=== PATIENT | male | born 1980 | race Caucasian/White ===

== ENCOUNTER 2023-01-30 10:55 | Emergency (ER) | payer MEDICARE, OTHER ==
[~2023-01-30] VITALS: Ht 167.6 cm; Wt 68.5 kg
[2023-01-30] MEDS ORDERED: IBUPROFEN 800 MG TABLET ONE (11:13)
[2023-01-30] MEDS ORDERED: IBUPROFEN 800 MG TABLET PO ONE (11:15)
[2023-01-30 12:14] VITALS: BP 114/69; TEMP 97.8; O2SAT 98
== END 2023-01-30 12:14 | disposition home or self-care (01) ==
LOC: ER 10:55
DX: S93.602A Unspecified sprain of left foot, initial encounter (principal); X58.XXXA Exposure to other specified factors, initial encounter; Y93.89 Activity, other specified; Y92.89 Other specified places as the place of occurrence of the external cause; Y99.8 Other external cause status
CPT/HCPCS: 73630; A4606; A4663